=== PATIENT | male | born 1980 | race Asian ===

== ENCOUNTER 2018-07-23 14:02 | Emergency (ER) | payer MEDICAID ==
[~2018-07-23] VITALS: Ht 182.9 cm; Wt 78.0 kg
[2018-07-23] MEDS ORDERED: ONDANSETRON 4 MG INJ IV STA (14:08)
[2018-07-23] MEDS ORDERED: SOD CHLORIDE 0.9% 1,000 ML IV STA (14:08)
[2018-07-23] MEDS ORDERED: HYDROmorphONE 2 MG/ML SYG IV STA (14:08)
[2018-07-23 14:10] VITALS: Ht 182.9 cm; Wt 78.0 kg
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
[2018-07-23] MEDS ORDERED: SOD CHLORIDE 0.9% 100 ML ONE (16:33)
[2018-07-23] MEDS ORDERED: IOHEXOL 300MG/ML 150 ML BTL ONE (16:33)
[2018-07-23] MEDS ORDERED: IBUP-1542 PO (17:10)
[2018-07-23 17:14] VITALS: BP 117/85; PULSE 58; RESP 19
== END 2018-07-23 17:22 | disposition home or self-care (01) ==
LOC: E/R 14:02
DX: S13.9XXA Sprain of joints and ligaments of unspecified parts of neck, initial encounter (principal); S63.502A Unspecified sprain of left wrist, initial encounter; R10.9 Unspecified abdominal pain; V49.49XA Driver injured in collision with other motor vehicles in traffic accident, initial encounter
CPT/HCPCS: 36415; 71260; 72125; 73110; 74177; 80053; 83690; 85025; 85610; 85730; 96374; 96375; J1170; J2405; J7030; Q9967; Z7502; Z7610